=== PATIENT | male | born 1990 ===

== ENCOUNTER 2018-11-11 20:56 | Emergency (ER) | payer SELFPAY ==
[2018-11-11] MEDS ORDERED: diphenhydrAMINE 25 MG CAP ONE (21:23)
== END 2018-11-11 21:29 | disposition home or self-care (01) ==
LOC: ERS 20:56
DX: B35.4 Tinea corporis (principal); L30.9 Dermatitis, unspecified; F17.210 Nicotine dependence, cigarettes, uncomplicated
CPT/HCPCS: 99282; Q0163